=== PATIENT | female | born 1980 | race Caucasian/White ===

== ENCOUNTER 2018-11-15 09:24 | Emergency (ER) | payer MEDICAID ==
[2018-11-15 09:30] VITALS: BP 159/94
--- NOTE | 2018-11-15 09:44 | ED Physician Documentation ---
History of Present Illness - Stated complaint Stated Complaint: ANXIETY/PX - Chief complaint Chief Complaint: General - History obtained from History obtained from: Patient, Friend - Additonal information Additional information: Patient is a 38-year-old female with history of methadone use, depression, and Crohn's disease presenting with concern for withdrawal from methadone as her last dose was yesterday.Patient states that she recently became homeless and was in a bad social situation and came from [place] to [facility] about 1 week ago. Patient's methadone medication ran out yesterday and she is extremely anxious about possible withdrawal symptoms. Currently, she complains of headache, restless legs, and yawning. Patient reports that she is attempting to change her methadone clinic from [place] to [place] and has an intake schedule, but not for several days. Patient reports that she is noncompliant with antidepressant medication and does not take any preventative medications from a GI standpoint. No other improving or worsening factors noted. Patient is requesting benzodiazepines and/or narcotics. Review of Systems Neurologic: reports: Headache Psychiatric: reports: Anxiety PD PAST MEDICAL HISTORY - Past Medical History GI: Crohn's disease Psych: Depression - Past Surgical History General: Bowel surgery - Present Medications Home Medications: Ambulatory Orders Medication Instructions Recorded Confirmed Methadone 60 mg PO DAILY 11/15/18 11/15/18 - Allergies Allergies/Adverse Reactions: Allergies Allergy/AdvReac Type Severity Reaction Status Date / Time amoxicillin [From Augmentin] Allergy Unknown Verified 11/15/18 09:30 clavulanic acid Allergy Unknown Verified 11/15/18 09:30 [From Augmentin] PD ED PE NORMAL - Vitals Vital signs reviewed: Yes (Tachycardic) - Free text exam Free text exam: Patient declined exam and walked out of ED. Results - Vitals Vitals: Vital Signs - 24 hr 11/15/18 09:28 Temperature 37.1 C Heart Rate 136 H Respiratory 18 Rate Blood Pressure 159/94 H O2 Saturation 99 Oxygen O2 Source Room air PD MEDICAL DECISION MAKING - ED course Complexity details: considered differential, d/w patient, d/w family ED course: Patient presenting with concerns for withdrawal symptoms from methadone. Patient's last methadone dose was yesterday and although she appears slightly anxious, patient does not appear to be experiencing an acute withdrawal syndrome, intoxication, or other toxidrome. Patient immediately requests methadone, narcotics and/or benzodiazepines, which is declined As we do not dispense methadone and otherwise I do not feel appropriate to give benzodiazepines or narcotics in this particular situation given patient's abuse history and methadone use.Before I was able to discuss other anti-anxiety medication such as hydroxyzine, patient declined further interview, exam, and otherwise got up and left the ED. Patient's friend was present at this time and mentioned inpatient hospitalization, which is not warranted and was otherwise briefly advised on outpatient detox, rehab, and other facilities. Departure - Departure Disposition: 01 Home, Self Care Clinical Impression: Anxiety Condition: Good Follow-Up: your,doctor [Other]
== END 2018-11-15 09:59 | disposition home or self-care (01) ==
LOC: ED 09:24
DX: F41.9 Anxiety disorder, unspecified (principal); F11.90 Opioid use, unspecified, uncomplicated
CPT/HCPCS: 99282; 99284